=== PATIENT | male | born 1990 | race Two or more races ===

== ENCOUNTER 2024-08-28 10:53 | Emergency (ER) | payer MEDICAID, OTHER ==
[~2024-08-28] VITALS: Ht 170.2 cm; Wt 56.8 kg
[2024-08-28 11:00] VITALS: TEMP 97.8
--- NOTE | 2024-08-28 11:05 | ED.PDOC ---
History of Present Illness HPI Comments 33-year-old male brought by paramedics from surgery center because he has been having continuous nausea vomiting since this morning. He did have marijuana last night. He was supposed to have endoscopy this morning but he did not get the procedure because of his continuous vomiting. He does have a history of H pylori arrival for which she was diagnosed seven years ago but was under control. His providers does think his vomiting is due to using marijuana but wanted to confirm with endoscope whether he had H pylori right. History of gallbladder surgery. Denies any other symptoms. Time Seen by MD: 10:59 Reviewed Notes: Nurses Notes, Medications, Allergies Information Source: Patient, Emergency Med Personnel Mode of Arrival: EMS Severity: Moderate Timing: Hours Duration: Since onset Past Medical History PAST MEDICAL HISTORY: Denies Surgical History: Denies all surgeries Social History Smoker: Non-Smoker Alcohol: Denies ETOH Use Drugs: Marijuana Constitutional: denies: chills, diaphoresis, fatigue, fever, malaise, sweats, weakness, others EENTM: denies: blurred vision, double vision, ear bleeding, ear discharge, ear drainage, ear pain, ear ringing, eye pain, eye redness, hearing loss, mouth pain, mouth swelling, nasal discharge, nose bleeding, nose congestion, nose pain, photophobia, tearing, throat pain, throat swelling, voice changes, others Respiratory: denies: cough, hemoptysis, orthopnea, SOB at rest, shortness of breath, SOB with excertion, stridor, wheezing, others Cardiovascular: denies: chest pain, dizzy spells, diaphoresis, Dyspnea on exertion, edema, irregular heart beat, left arm pain, lightheadedness, palpitations, PND, syncope, others Gastrointestinal: reports: nausea, vomiting; denies: abdomen distended, abdominal pain, blood streaked bowels, constipated, diarrhea, dysphagia, difficulty swallowing, hematemesis, melena, poor appetite, poor fluid intake, rectal bleeding, rectal pain, others Genitourinary: denies: burning, dysuria, flank pain, frequency, hematuria, incontinence, penile discharge, penile sore, pain, testicle pain, testicle swelling, urgency, others Neurological: denies: dizziness, fainting, headache, left sided numbness, left sided weakness, numbness, paresthesia, pre-existing deficit, right sided numbness, right sided weakness, seizure, speech problems, tingling, tremors, weakness, others Musculoskeletal: denies: back pain, gout, joint pain, joint swelling, muscle pain, muscle stiffness, neck pain, others Integumetry: denies: bruises, change in color, change in hair/nails, dryness, laceration, lesions, lumps, rash, wounds, others Allergic/Immunocompromised: denies: Difficulty Healing, Frequent Infections, Hives, Itching, others Hematologic/Lymphatic: denies: anemia, blood clots, easy bleeding, easy bruising, swollen glands, others Endocrine: denies: excessive hunger, excessive sweating, excessive thirst, excessive urination, flushing, intolerance to cold, intolerance to heat, unexplained weight gain, unexplained weight loss, others Psychiatric: denies: anxiety, bipolar disorder, depression, hopeless, panic disorder, schizophrenia, sleepless, suicidal, others Physical Exam General Appearance: Moderate Distress HEENT: Normal ENT Inspection, Pharynx Normal, TMs Normal Neck: Full Range of Motion, Non-Tender, Normal, Normal Inspection Respiratory: Chest Non-Tender, Lungs Clear, No Accessory Muscle Use, No Respiratory Distress, Normal Breath Sounds Cardiovascular: No Edema, No JVD, No Murmur, No Gallop, Normal Peripheral Pulses, Regular Rate/Rhythm Breast Exam: Deferred Gastrointestinal: No Organomegaly, Non Tender, No Pulsatile Mass, Normal Bowel Sounds, Soft Genitalia: Deferred Pelvic: Deferred Rectal: Deferred Extremities: No calf tenderness, Normal capillary refill, Normal inspection, Normal range of motion, Non-tender, No pedal edema Musculoskeletal : Apperance: Normal Neurologic: Alert, instruction dean II-XII nml as Tested, No Motor Deficits, Normal Affect, Normal Mood, No Sensory Deficits Cerebellar Function: NOT DONE Reflexes: NOT DONE Skin: Dry, Normal Color, Warm Peripheral Pulses: 3+ Radial (R), 3+ Radial (L) Lymphatic: No Adenopathy Was a procedure done? Was a procedure done?: No Differential Dx Considerations may include: Marijuana induced vomiting Electrolyte imbalance X-Ray, Labs, Meds, VS Vital Signs Date Time Temp Pulse Resp B/P (MAP) Pulse Ox O2 Delivery O2 Flow Rate FiO2 08/28/24 13:21 69 16 145/81 (102) 98 08/28/24 13:20 69 16 145/81 08/28/24 11:39 82 20 157/83 08/28/24 11:35 Room Air* 0 21 08/28/24 11:35 68 20 157/83 (107) 98 Lab Test 08/28/24 11:18 Range/Units White Blood Count 10.4 4.4-10.8 10^3/uL Red Blood Count 5.41 4.5-5.90 10^6/uL Hemoglobin 16.9 13.5-17.5 g/dL Hematocrit 48.1 41.0-53.0 % Mean Corpuscular Volume 89.0 80.0-100.0 fL Mean Corpuscular Hemoglobin 31.2 28.0-32.0 pg Mean Corpuscular Hemoglobin Concent 35.0 32.0-36.0 g/dL Red Cell Distribution Width 13.6 11.8-14.3 % Platelet Count 130 L 140-450 10^3/uL Mean Platelet Volume 8.8 6.9-10.8 fL Neutrophils (%) (Auto) 37.0-80.0 % Lymphocytes (%) (Auto) 10.0-50.0 % Monocytes (%) (Auto) 0.0-12.0 % Basophils (%) (Auto) 0.0-2.0 % Neutrophils # (Auto) 1.6-8.6 10 ^3/uL Lymphocytes # (Auto) 0.4-5.4 10 ^3/uL Monocytes # (Auto) 0-1.3 10 ^3/uL Differential Total Cells Counted 99.0 100 Neutrophils % (Manual) 95 H 37.0-80.0 Band Neutrophils % (Manual) 1 Lymphocytes % (Manual) 3 L 10.0-50.0 Monocytes % (Manual) 0 0-12 Eosinophils % (Manual) 0 0-7 Basophils % (Manual) 0 0.0-2.0 Metamyelocytes % (manual) 0 Myelocytes % (Manual) 0 Promyelocytes % (Manual) 0 Blast Cells % (Manual) 0 Reactive Lymphocytes 0 Platelet Estimate Decreased Sodium Level 142 136-145 mmol/L Potassium Level 4.0 3.5-5.1 mmol/L Chloride Level 107 98-107 mmol/L Carbon Dioxide Level 24 20-31 mmol/L Anion Gap 11 5-15 Blood Urea Nitrogen 16 9-23 mg/dL Creatinine 0.93 0.700-1.30 mg/dL Glomerular Filtration Rate Calc 112 >90 mL/min BUN/Creatinine Ratio 17.2 10.0-20.0 Serum Glucose 146 H 74-106 mg/dL Calcium Level 10.1 8.7-10.4 mg/dL Current Medications Medications (Trade) Dose Ordered Sig/Jaky Route Start Time Stop Time Status Last Admin Ondansetron HCl (Zofran) 4 mg ONCE ONCE IV 08/28/24 11:00 08/28/24 11:01 DC 08/28/24 11:39 Morphine Sulfate 4 mg ONCE ONCE IV 08/28/24 11:00 08/28/24 11:01 DC 08/28/24 11:39 Sodium Chloride 1,000 ml @ 1,000 mls/hr Q1H ONCE IV 08/28/24 11:00 08/28/24 11:59 DC 08/28/24 11:46 Sodium Chloride 1,000 ml @ 150 mls/hr Q6H40M ONCE IV 08/28/24 11:00 08/28/24 17:39 08/28/24 11:46 Patient alert. Complaining of vomiting. Did have marijuana last night. Vitals stable. Establish intravenous access. Was given fluids. Was given Zofran. Was given morphine. Counseled patient on effects of marijuana. He was supposed to have endoscopic today. GI consultation. History of H pylori. Continue monitoring. Was feeling much better after getting fluids. Insists on leaving. Was told to follow up with his primary care physician. Was told to come back if there is any problem. Time of 1ST Reevaluation: 11:03 Reevaluation 1ST: Unchanged Time of 2ND Reevaluation: 13:29 Reevaluation 2ND: Improved Patient Education/Counseling: Diagnosis, Treatment, Prognosis, Need For Follow Up Family Education/Counseling: No Family Present SEPSIS Sepsis Screen Physician Orders Drug Screen (08/28/24 10:59) Sodium Chloride 0.9% (08/28/24 11:00) Vital Signs Date Time Temp Pulse Resp B/P (MAP) Pulse Ox O2 Delivery O2 Flow Rate FiO2 08/28/24 13:21 69 16 145/81 (102) 98 08/28/24 13:20 69 16 145/81 08/28/24 11:39 82 20 157/83 08/28/24 11:35 Room Air* 0 21 08/28/24 11:35 68 20 157/83 (107) 98 Laboratory Tests Test 08/28/24 11:18 White Blood Count 10.4 10^3/uL (4.4-10.8) Medications Medications Dose Ordered Sig/Jaky Route Start Time Stop Time Status Last Admin Dose Admin Morphine Sulfate 4 mg ONCE ONCE IV 08/28/24 11:00 08/28/24 11:01 DC 08/28/24 11:39 Ondansetron HCl 4 mg ONCE ONCE IV 08/28/24 11:00 08/28/24 11:01 DC 08/28/24 11:39 Sodium Chloride 1,000 ml @ 150 mls/hr Q6H40M ONCE IV 08/28/24 11:00 08/28/24 17:39 08/28/24 11:46 Sodium Chloride 1,000 ml @ 1,000 mls/hr Q1H ONCE IV 08/28/24 11:00 08/28/24 11:59 DC 08/28/24 11:46 Departure 1 Departure Time of Disposition: 11:04 Impression: Primary Impression: Cannabis-induced disorder Additional Impression: Cyclical vomiting Disposition: 01 HOME / SELF CARE / HOMELESS Condition: Good Discharged With: Self Critical Care Note Critical Care Time?: Yes (45 min-critical care time only) Critical care comment: Continues to have vomiting was given fluids nausea medication Stability Stability form required: No Heart Score Heart Score: Heart Score Response (Comments) Value History N/A 0 EKG N/A 0 Age N/A 0 Risk Factors N/A 0 Troponin N/A 0 Total 0 JOAN BOLANOS MD Aug 28, 2024 11:05
[2024-08-28 11:29] LABS: Hematocrit 48.1 % (41.0-53.0); Hemoglobin 16.9 g/dL (13.5-17.5); Mean Corpuscular Hemoglobin 31.2 pg (28.0-32.0); Platelet Count (auto) 130 10^3/uL (140-450); Red Blood Cells 5.41 10^6/uL (4.5-5.90); Red Cell Distribution Width 13.6 % (11.8-14.3); White Blood Cell 10.4 10^3/uL (4.4-10.8)
[2024-08-28 11:35] LABS: Basophils % (manual) 0 (0.0-2.0); Blast Cells 0; Eosinophils % (manual) 0 (0-7); Metamyelocytes % 0; Monocytes % (manual) 0 (0-12); Myelocytes % 0; Promyelocytes % 0; Reactive Lymphocytes 0
[2024-08-28] MEDS: ONDANSETRON HCL 4 MG/2 ML VIAL IV ONE (11:39)
[2024-08-28] MEDS: MORPHINE SULFATE 4 MG/ML SYR/VIAL IV ONE (11:39)
[2024-08-28 11:45] LABS: Chloride 107 mmol/L (98-107); Sodium 142 mmol/L (136-145)
[2024-08-28 11:46] LABS: Anion Gap 11 (5-15); Carbon Dioxide 24 mmol/L (20-31)
[2024-08-28] MEDS: SODIUM CHLORIDE 0.9% 1,000 ML IV ONE ×2 (11:46)
[2024-08-28 11:47] LABS: Calcium 10.1 mg/dL (8.7-10.4)
[2024-08-28 11:51] LABS: BUN/Creatinine Ratio 17.2 (10.0-20.0); Blood Urea Nitrogen 16 mg/dL (9-23)
[2024-08-28 11:52] LABS: Glucose 146 mg/dL (74-106)
[2024-08-28 12:44] LABS: Band Neutrophils % (manual) 1; Lymphocytes % (manual) 3 (10.0-50.0); Platelet Estimate Decreased
[2024-08-28 13:21] VITALS: BP 145/81; PULSE 69; RESP 16; O2SAT 98
[2024-08-29] MEDS ORDERED: PANT40T PO (12:16)
== END 2024-08-28 13:21 | disposition home or self-care (01) ==
LOC: ER 10:53 → EDBD 10:53 → ER 13:21
DX: F12.19 Cannabis abuse with unspecified cannabis-induced disorder (principal); R11.15 Cyclical vomiting syndrome unrelated to migraine
CPT/HCPCS: 36415; 80048; 85007; 85027; 96361; 96374; 96375; 99284; J2270; J2405; J7030

== ENCOUNTER 2024-08-29 08:47 | Inpatient (IN) | payer MEDICAID ==
[~2024-08-29] VITALS: Ht 170.2 cm; Wt 58.0 kg
[2024-08-29] MEDS: SODIUM CHLORIDE 0.9% 1,000 ML IV ONE (09:29)
[2024-08-29] MEDS: ONDANSETRON HCL 4 MG/2 ML VIAL IV ONE (09:37)
[2024-08-29] MEDS: SODIUM CHLORIDE 0.9% 1,000 ML IVB ONE (09:38)
[2024-08-29 09:41] VITALS: PULSE 79; RESP 18; O2SAT 96
--- NOTE | 2024-08-29 09:42 | ED.PDOC ---
History of Present Illness HPI Comments 33-year-old male came here because he was having abdominal pain nausea vomiting 430 this morning. Patient was seen yesterday for continuous nausea vomiting for which she was supposed to have endoscope. Patient was seen at his assistant to the ceo prior to coming to the ER by ambulance because of continuous nausea vomiting. He does have a history of H pylori which was diagnosed seven years ago. 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 Creative Engagement Director has referred the patient to the ER for endoscope. Denies any other symptoms. Chief Complaint: Abdominal Pain Time Seen by MD: 09:18 Reviewed Notes: Nurses Notes, Medications, Allergies Allergies: Coded Allergies: NO KNOWN ALLERGIES (Unverified , 08/28/24) Information Source: Patient Mode of Arrival: Ambulatory Severity: Moderate Timing: Days Duration: Since onset Past Medical History PAST MEDICAL HISTORY: Denies Surgical History: Denies all surgeries Social History Smoker: Non-Smoker Alcohol: Denies ETOH Use Drugs: Marijuana Constitutional: denies: chills, diaphoresis, fatigue, fever, malaise, sweats, weakness, others EENTM: denies: blurred vision, double vision, ear bleeding, ear discharge, ear drainage, ear pain, ear ringing, eye pain, eye redness, hearing loss, mouth pain, mouth swelling, nasal discharge, nose bleeding, nose congestion, nose pain, photophobia, tearing, throat pain, throat swelling, voice changes, others Respiratory: denies: cough, hemoptysis, orthopnea, SOB at rest, shortness of breath, SOB with excertion, stridor, wheezing, others Cardiovascular: denies: chest pain, dizzy spells, diaphoresis, Dyspnea on exertion, edema, irregular heart beat, left arm pain, lightheadedness, palpitations, PND, syncope, others Gastrointestinal: reports: nausea, vomiting; denies: abdomen distended, abdominal pain, blood streaked bowels, constipated, diarrhea, dysphagia, difficulty swallowing, hematemesis, melena, poor appetite, poor fluid intake, rectal bleeding, rectal pain, others Genitourinary: denies: burning, dysuria, flank pain, frequency, hematuria, incontinence, penile discharge, penile sore, pain, testicle pain, testicle swelling, urgency, others Neurological: denies: dizziness, fainting, headache, left sided numbness, left sided weakness, numbness, paresthesia, pre-existing deficit, right sided numbness, right sided weakness, seizure, speech problems, tingling, tremors, weakness, others Musculoskeletal: denies: back pain, gout, joint pain, joint swelling, muscle pain, muscle stiffness, neck pain, others Integumetry: denies: bruises, change in color, change in hair/nails, dryness, laceration, lesions, lumps, rash, wounds, others Allergic/Immunocompromised: denies: Difficulty Healing, Frequent Infections, Hives, Itching, others Hematologic/Lymphatic: denies: anemia, blood clots, easy bleeding, easy bruisi ng, swollen glands, others Endocrine: denies: excessive hunger, excessive sweating, excessive thirst, exce ssive urination, flushing, intolerance to cold, intolerance to heat, unexplained weight gain, unexplained weight loss, others Psychiatric: denies: anxiety, bipolar disorder, depression, hopeless, panic disorder, schizophrenia, sleepless, suicidal, others Physical Exam General Appearance: Moderate Distress HEENT: Normal ENT Inspection, Pharynx Normal, TMs Normal Neck: Full Range of Motion, Non-Tender, Normal, Normal Inspection Respiratory: Chest Non-Tender, Lungs Clear, No Accessory Muscle Use, No Respiratory Distress, Normal Breath Sounds Cardiovascular: No Edema, No JVD, No Murmur, No Gallop, Normal Peripheral Pulse s, Regular Rate/Rhythm Breast Exam: Deferred Gastrointestinal: No Organomegaly, Non Tender, No Pulsatile Mass, Normal Bowel Sounds, Soft Genitalia: Deferred Pelvic: Deferred Rectal: Deferred Extremities: No calf tenderness, Normal capillary refill, Normal inspection, Normal range of motion, Non-tender, No pedal edema Musculoskeletal : Apperance: Normal Neurologic: Alert, cath lab technologist II-XII nml as Tested, No Motor Deficits, Normal Affect, Normal Mood, No Sensory Deficits Cerebellar Function: Normal Reflexes: Normal Skin: Dry, Normal Color, Warm Peripheral Pulses: 3+ Radial (R), 3+ Radial (L) Lymphatic: No Adenopathy Was a procedure done? Was a procedure done?: No Differential Dx Considerations may include: Gastroenteritis Gastritis X-Ray, Labs, Meds, VS Vital Signs Date Time Temp Pulse Resp B/P (MAP) Pulse Ox O2 Delivery O2 Flow Rate FiO2 08/29/24 09:11 98.3 81 18 120/65 (83) 98 98.3 Patient alert. Came in because of abdominal pain nausea vomiting. Vitals stable. Answering questions. He is pain-free at the present moment. Last pain episode with vomiting was 4:30 this morning. Reviewed his previous visit. Explained to the family. Continue monitoring. Gastroenterology consultation. Time of 1ST Reevaluation: 09:41 Reevaluation 1ST: Unchanged Patient Education/Counseling: Diagnosis, Treatment, Prognosis Family Education/Counseling: No Family Present SEPSIS Sepsis Screen Date sepsis recognized/suspect: Aug 29, 2024 Time Sepsis recognized/suspect: 912 Recent Procedure: No On Antibiotic Therapy: No Respiratory Rate >20: No Heart Rate >90: No Temp<36 C (96.8 F) or >38.3 C: No SBP <90 or MAP <65 mmHG: No New Acute Mental Status Change: No Is the patient on CPAP, BIPAP,: No Physician Orders Sodium Chloride 0.9% (08/29/24 09:30) Basic Metabolic Panel (08/29/24 09:18) Sodium Chloride 0.9% (08/29/24 09:30) Vital Signs Date Time Temp Pulse Resp B/P (MAP) Pulse Ox O2 Delivery O2 Flow Rate FiO2 08/29/24 09:11 98.3 81 18 120/65 (83) 98 98.3 Departure 1 Departure Time of Disposition: 09:42 Impression: Primary Impression: Cannabis-induced disorder Additional Impressions: Gastritis Qualified Codes: K29.00 - Acute gastritis without bleeding Cyclical vomiting Disposition: ADMITTED INPATIENT Admit to: Med Surg Condition: Guarded Critical Care Note Critical Care Time?: No Stability Stability form required: No Heart Score Heart Score: Heart Score Response (Comments) Value History N/A 0 EKG N/A 0 Age N/A 0 Risk Factors N/A 0 Troponin N/A 0 Total 0 JOAN BOLANOS MD Aug 29, 2024 09:42
[2024-08-29 09:54] LABS: Chloride 105 mmol/L (98-107); Potassium 4.3 mmol/L (3.5-5.1); Sodium 141 mmol/L (136-145)
[2024-08-29 09:55] LABS: Anion Gap 8 (5-15); Calcium 10.2 mg/dL (8.7-10.4); Carbon Dioxide 28 mmol/L (20-31)
[2024-08-29 10:00] LABS: BUN/Creatinine Ratio 15.1 (10.0-20.0); Blood Urea Nitrogen 14 mg/dL (9-23); Glucose 105 mg/dL (74-106)
[2024-08-29] MEDS ORDERED: ACETAMINOPHEN 325 MG TAB PO PRN (12:15)
[2024-08-29] MEDS ORDERED: ONDANSETRON HCL 4 MG/2 ML VIAL IV PRN (12:15)
[2024-08-29] MEDS ORDERED: DOCUSATE SOD 100 MG CAP PO PRN (12:15)
[2024-08-29] MEDS: SODIUM CHLORIDE 0.9% 1,000 ML IV SCH (12:15)
[2024-08-29] MEDS ORDERED: PANT40T PO (12:16)
--- NOTE | 2024-08-29 12:29 | DVHHP2 ---
History of Present Illness Reason for Visit: Abdominal pain History of Present Illness Fish Ahuja is a 33-year-old male with past medical history of H pylori, and gastritis, who was sent to the hospital by his GI doctor for cyclical vomiting and EGD. Patient was scheduled for an EGD yesterday. He came as an outpatient for the procedure, but doctor Dain was unable to complete the procedure due to the patient having \cyclical vomiting. She then sent him to the hospital to be evaluated, treated, and admitted. The patient came yesterday, was sent home. Then called to come back to the hospital. GI: Gastritis Past Surgical History: Cholecystectomy Smoke: No ALCOHOL: rare Drugs: Marijuana Lives: with Family Domestic Violence: Neg Review of Systems Constitutional: No: Fever, Chills, Sweats, Weakness, Malaise, Other Eyes: No: Pain, Vision change, Conjunctivae inflammation, Eyelid inflammation, Other, Redness ENT: No: Ear pain, Ear discharge, Nose pain, Nose discharge, Nose congestion, Mouth pain, Mouth swelling, Throat pain, Throat swelling, Other Respiratory: No: Cough, Dry, Shortness of breath, SOB with excertion, Wheezing, Hemoptysis, Pleuritic Pain, Sputum, Wheezing, Other Cardiovascular: No: Chest Pain, Palpitations, Orthopnea, Paroxysmal Noc. Dyspnea, Edema, Lt Headedness, Other Gastrointestinal: Nausea, Vomiting, Abdominal Pain; No: Diarrhea, Constipation, Melena, Hematochezia, Other Genitourinary: No Dysuria, No Frequency, No Incontinence, No Hematuria, No Retention, No Other Musculoskeletal: No: other, neck pain, shoulder pain, arm pain, back pain, hand pain, leg pain, foot pain Skin: No: Rash, Lesions, Jaundice, Bruising, Other Neurological: No: Weakness, Numbness, Incoordination, Change in speech, Confusion, Seizures, Other Allergies: Coded Allergies: NO KNOWN ALLERGIES (Unverified , 08/28/24) Exam Vital Signs Vital Signs Date Time Temp Pulse Resp B/P (MAP) Pulse Ox O2 Delivery O2 Flow Rate FiO2 08/29/24 10:50 51 16 105/6 (39) 99 08/29/24 09:41 97.8 97.8 08/29/24 09:41 Room Air* 0 21 General Appearance: Alert, Oriented X3, Cooperative, mild distress HEENT: Atraumatic, PERRLA Respiratory: Clear to auscultation, Normal air movement Cardiovascular: Regular rate, Normal S1, Normal S2 Abdominal: Normal bowel sounds, Soft, No hepatospenomegaly, Other (abdomial pain, nausea and vomiting) Extremities: No clubbing, No cyanosis, No edema, Normal pulses, No tenderness/swelling Skin: No rashes, No breakdown, No significant lesion Neuro: Normal gait, Normal speech, Strength at 5/5 X4 ext Psych/Mental Status: Mental status NL, Mood NL Labs/Xrays Labs Test 08/29/24 09:36 Range/Units Sodium Level 141 136-145 mmol/L Potassium Level 4.3 3.5-5.1 mmol/L Chloride Level 105 98-107 mmol/L Carbon Dioxide Level 28 20-31 mmol/L Anion Gap 8 5-15 Blood Urea Nitrogen 14 9-23 mg/dL Creatinine 0.93 0.700-1.30 mg/dL Glomerular Filtration Rate Calc 112 >90 mL/min BUN/Creatinine Ratio 15.1 10.0-20.0 Serum Glucose 105 74-106 mg/dL Calcium Level 10.2 8.7-10.4 mg/dL Assessment/Plan Assessment/Plan Assessment: Cyclical vomiting, Gastritis, H/O H pylori, Plan: Admit to Med-Surg, GI consult, IV hydration, Antiemetics, Pain management, Home mediations reconciled, Plan discussed with: Patient My Orders Orders - TARYN PERALTA Procedure Category Date Status Time * Gi Dvh Auto Damage Adjuster CONS 08/29/24 Transmitted 10:24 Admit ADMIT 08/29/24 Verified 12:14 Code Status CODE 08/29/24 Verified 12:14 0.9% Ns 1000 Ml PHA 08/29/24 Verified 12:15 Hydrocodone-Acet PHA 08/29/24 Verified 5/325mg Tab ([place] 12:15 Ondansetron Hcl PHA 08/29/24 Verified (Zofran) 12:15 Docusate Sodium PHA 08/29/24 Verified Capsule ([place] 12:15 Complete Blood Count LAB 08/30/24 Verified 04:00 Comprehensive LAB 08/30/24 Verified Metabolic Panel 04:00 Npo (Nothing By DIET 08/29/24 Verified Mouth) Diet Lunch Condition: Serious MERCEDES 08/29/24 Verified 12:14 Acetaminophen Tablet PHA 08/29/24 Verified (Tylenol Tablet) 12:15 Date of Service: Aug 29, 2024 Billing Provider: TARYN PERALTA Common Visit Codes: [id number] INP/OBS CARE (MOD) TARYN PERALTA Aug 29, 2024 12:29
[2024-08-29 13:15] LABS: Urine Bacteria None Seen /hpf (None Seen)
[2024-08-29 13:21] LABS: Urine Blood Negative /uL (Negative); Urine Clarity Clear (Clear); Urine Color Light-Yellow (Yellow); Urine Protein, UAD Negative (Negative); Urine Specific Gravity 1.018 (1.001-1.035); Urine Squamous Epithelial Cell None Seen /hpf (<5); Urine Urobilinogen Normal (Negative); Urine WBC 1 /HPF (0-3)
[2024-08-29 21:40] VITALS: BP 116/64; PULSE 54; RESP 18; TEMP 98.3; O2SAT 99
[2024-08-30] MEDS: HYDROcodone-ACET 5/325MG TAB PO PRN (04:16)
[2024-08-30] MEDS: KETOROLAC TROMETH 30 MG/ML 1ML VIAL IV ONE (04:59)
[2024-08-30 05:00] VITALS: BP 121/79; PULSE 55; RESP 18; TEMP 98.5; O2SAT 97
[2024-08-30 09:00] VITALS: BP 145/87; PULSE 77; RESP 20; TEMP 97.1; O2SAT 99
[2024-08-30 12:05] LABS: Basophils # (auto) 0.1 10 ^3/uL (0-0.2); Basophils % (auto) 0.9 % (0.0-2.0); Eosinophils # (auto) 0 10 ^3/uL (0-0.8); Eosinophils % (auto) 0.5 % (0.0-7.0); Hemoglobin 16.1 g/dL (13.5-17.5); Lymphocytes % (auto) 13.6 % (10.0-50.0); Mean Corpuscular Hemoglobin 31.1 pg (28.0-32.0); Mean Corpuscular Hgb Conc. 34.9 g/dL (32.0-36.0); Mean Corpuscular Volume 88.9 fL (80.0-100.0); Monocytes # (auto) 0.6 10 ^3/uL (0-1.3); Neutrophils # (auto) 5.9 10 ^3/uL (1.6-8.6); Platelet Count (auto) 116 10^3/uL (140-450); Red Blood Cells 5.17 10^6/uL (4.5-5.90); Red Cell Distribution Width 13.4 % (11.8-14.3); White Blood Cell 7.7 10^3/uL (4.4-10.8)
[2024-08-30 12:23] LABS: Alanine Aminotransferase 26 U/L (7-40); Albumin 4.5 g/dL (3.2-4.8); Alkaline Phosphatase 58 U/L (46-116); Anion Gap 7 (5-15); Aspartate Aminotransferase 27 U/L (<34); Bilirubin, Total 1.1 mg/dL (0.2-1.0); Blood Urea Nitrogen 13 mg/dL (9-23); Calcium 9.8 mg/dL (8.7-10.4); Carbon Dioxide 28 mmol/L (20-31); Chloride 107 mmol/L (98-107); Glucose 102 mg/dL (74-106); Potassium 3.8 mmol/L (3.5-5.1); Sodium 142 mmol/L (136-145); Total Protein 6.3 g/dL (5.7-8.2)
[2024-08-30 13:00] VITALS: BP 122/71; PULSE 57; RESP 20; TEMP 97; O2SAT 98
--- NOTE | 2024-08-30 13:32 | DVHPN2 ---
Reviewed: Care Plan, H&P, Labs, Medications, Previous Orders, Radiology Changes from previous H/P or p: No Changes Eyes: No Pain, No Vision change, No Conjunctivae inflammation, No Eyelid inflammation, No Other, No Redness ENT: No Ear pain, No Ear discharge, No Nose pain, No Nose discharge, No Nose congestion, No Mouth pain, No Mouth swelling, No Throat pain, No Throat swelling, No Other Cardiovascular: No Chest Pain, No Palpitations, No Orthopnea, No Paroxysmal Noc. Dyspnea, No Edema, No Lt Headedness, No Other Respiratory: No Cough, No Dry, No Shortness of breath, No SOB with excertion, No Wheezing, No Hemoptysis, No Pleuritic Pain, No Sputum, No Other Gastrointestinal: Nausea, Vomiting, Abdominal Pain; No Diarrhea, No Constipation, No Melena, No Hematochezia, No Other Genitourinary: No Dysuria, No Frequency, No Incontinence, No Hematuria, No Retention, No Other Musculoskeletal: No other, No neck pain, No shoulder pain, No arm pain, No back pain, No hand pain, No leg pain, No foot pain Skin: No Rash, No Lesions, No Jaundice, No Bruising, No Other Objective Vitals Vital Signs Date Time Temp Pulse Resp B/P (MAP) Pulse Ox O2 Delivery O2 Flow Rate FiO2 08/30/24 13:00 97.0 57 20 122/71 (88) 98 97.0 08/30/24 08:13 Room Air* 0 21 Intake/Output Intake and Output 08/30/24 07:00 Intake Total 230 ml Output Total 400 ml Balance -170 ml Intake Oral 230 ml Output Urine Total 400 ml # Voids 3 Medications Current Medications Medications Dose Ordered Sig/Jaky Route Start Time Stop Time Status Last Admin Dose Admin Sodium Chloride 1,000 ml @ 100 mls/hr Q10H IV 08/29/24 12:15 08/30/24 08:19 100 MLS/HR Acetaminophen/ Hydrocodone Bitart 1 tab Q4HP PRN PO 08/29/24 12:15 08/30/24 04:16 1 TAB Ondansetron HCl 4 mg Q4HP PRN IV 08/29/24 12:15 Docusate Sodium 100 mg BIDPRN PRN PO 08/29/24 12:15 Acetaminophen 650 mg Q6HP PRN PO 08/29/24 12:15 Laboratory Results Laboratory Tests 08/30/24 11:48 Chemistry Test 08/30/24 11:48 Albumin 4.5 g/dL (3.2-4.8) Calcium Level 9.8 mg/dL (8.7-10.4) Total Protein 6.3 g/dL (5.7-8.2) LFT Test 08/30/24 11:48 Alanine Aminotransferase (ALT) 26 U/L (7-40) Alkaline Phosphatase 58 U/L (46-116) Aspartate Amino Transferase (AST) 27 U/L (<34) Total Bilirubin 1.1 mg/dL (0.2-1.0) H Urinalysis Test 08/29/24 10:30 Urine Color Light-yellow (Yellow) Urine Clarity Clear (Clear) Urine pH 7.0 (5.0-9.0) Urine Specific [place] 1.018 (1.001-1.035) Urine Protein Negative (Negative) Urine Ketones Negative (Negative) Urine Blood Negative /uL (Negative) Urine Nitrite Negative (Negative) Urine Bilirubin Negative (Negative) Urine Urobilinogen Normal mg/dL (Negative) Urine Leukocyte Esterase Negative /uL (Negative) Urine RBC <1 /hpf (0 - 3) Urine Microscopic WBC 1 /HPF (0-3) Urine Squamous Epithelial Cells None seen /hpf (<5) Urine Bacteria None seen /hpf (None Seen) Urine Glucose Normal mg/dL (Normal) Labs and/or images reviewed: Labs reviewed by me, Image(s) reviewed by me Assessment/Plan Assessment/Plan Cyclical vomiting, CT abdomen pelvis without contrast pending, pantoprazole, GI consult by Dr. Karen Gautam for possible EGD, Gastritis, H/O H pylori History of marijuana abuse: Will check urine drug screen Plan discussed with: Patient My Orders Orders - FAITH RODRÍGUEZ MD Procedure Category Date Status Time Drug Screen LAB 08/30/24 Logged 13:23 Ct Ab Pel Wo Con-No CT 08/30/24 Logged Oral Or Iv 13:23 Date of Service: Aug 30, 2024 Billing Provider: FAITH RODRÍGUEZ MD Common Visit Codes: [id number] INP/OBS CARE(HIGH) FAITH RODRÍGUEZ MD Aug 30, 2024 13:32
--- NOTE | 2024-08-30 14:03 | DVHINCON2 ---
GI Consult Consult Note GI consult note Date of Consultation: 08/30/2024 Chief Complaint: Nausea and vomiting Referring Physician: Мария SALDIVAR H&P: 33-year-old male with past medical history of H. pylori gastritis was sent to the hospital by Dr. Gautam for cyclic nausea and vomiting. Patient was scheduled for an EGD, and symptoms of nausea and vomiting or worsening and was sent to the hospital. Patient complains of epigastric and periumbilical abdominal pain, worse in the morning, and patient is requesting for pain medications. Admits to long-term marijuana use because this helps with his pain symptoms. No hematemesis. Denies melena or red blood in stool. Past Medical History: Gastritis Past Surgical History: Cholecystectomy Social History: NO smoking, occasional drinking ETOH Positive marijuana use Family History: Noncontributory Review of Systems: Constitutional: no fever, chill, weight loss HEENT: no eye pain, no hearing loss, no oral lesion, no scleral icterus Heart: no chest pain, no chest pressure Lung: no cough, no dyspnea with exertion Abdomen: see HPI Physical exam: General: NAD, AAOX3 Chest: lung crump clear to auscultation Heart: RRR, no murmur Abdomen: non-distended, no tenderness to palpation, +BS Labs: Labs Test 08/30/24 11:48 08/29/24 10:30 Range/Units White Blood Count 7.7 # 4.4-10.8 10^3/uL Red Blood Count 5.17 4.5-5.90 10^6/uL Hemoglobin 16.1 13.5-17.5 g/dL Hematocrit 46.0 41.0-53.0 % Mean Corpuscular Volume 88.9 80.0-100.0 fL Mean Corpuscular Hemoglobin 31.1 28.0-32.0 pg Mean Corpuscular Hemoglobin Concent 34.9 32.0-36.0 g/dL Red Cell Distribution Width 13.4 11.8-14.3 % Platelet Count 116 L 140-450 10^3/uL Mean Platelet Volume 8.9 6.9-10.8 fL Neutrophils (%) (Auto) 77.0 37.0-80.0 % Lymphocytes (%) (Auto) 13.6 10.0-50.0 % Monocytes (%) (Auto) 8.0 0.0-12.0 % Eosinophils (%) (Auto) 0.5 0.0-7.0 % Basophils (%) (Auto) 0.9 0.0-2.0 % Neutrophils # (Auto) 5.9 1.6-8.6 10 ^3/uL Lymphocytes # (Auto) 1.0 0.4-5.4 10 ^3/uL Monocytes # (Auto) 0.6 0-1.3 10 ^3/uL Eosinophils # (Auto) 0 0-0.8 10 ^3/uL Basophils # (Auto) 0.1 0-0.2 10 ^3/uL Nucleated Red Blood Cells 0.0 % Sodium Level 142 136-145 mmol/L Potassium Level 3.8 3.5-5.1 mmol/L Chloride Level 107 98-107 mmol/L Carbon Dioxide Level 28 20-31 mmol/L Anion Gap 7 5-15 Blood Urea Nitrogen 13 9-23 mg/dL Creatinine 0.93 0.700-1.30 mg/dL Glomerular Filtration Rate Calc 112 >90 mL/min BUN/Creatinine Ratio 14.0 10.0-20.0 Serum Glucose 102 74-106 mg/dL Calcium Level 9.8 8.7-10.4 mg/dL Total Bilirubin 1.1 H 0.2-1.0 mg/dL Aspartate Amino Transferase (AST) 27 <34 U/L Alanine Aminotransferase (ALT) 26 7-40 U/L Alkaline Phosphatase 58 46-116 U/L Total Protein 6.3 5.7-8.2 g/dL Albumin 4.5 3.2-4.8 g/dL Urine Color Light-yellow Yellow Urine Clarity Clear Clear Urine pH 7.0 5.0-9.0 Urine Specific [place] 1.018 1.001-1.035 Urine Protein Negative Negative Urine Ketones Negative Negative Urine Blood Negative Negative /uL Urine Nitrite Negative Negative Urine Bilirubin Negative Negative Urine Urobilinogen Normal Negative mg/dL Urine Leukocyte Esterase Negative Negative /uL Urine RBC <1 0 - 3 /hpf Urine Microscopic WBC 1 0-3 /HPF Urine Squamous Epithelial Cells None seen <5 /hpf Urine Bacteria None seen None Seen /hpf Urine Glucose Normal Normal mg/dL Imaging: CT abdomen pelvis Pending Assessment: Abdominal pain Nausea and vomiting Marijuana use History of H pylori Plan: Discussed with Dr. Gautam - Pt will be scheduled for an EGD tomorrow 08/31/2024. Pt was informed of the risks (bleeding, infection, perforation, reaction to sedation medications and cardiopulmonary arrest) and benefit and is agreeable to undergo the procedures. DC marijuana discussed extensively Patient and at bedside requesting for long-term pain management evaluation and treatment Plan discussed with patient, and RN Thank you for this consult Date of Service: Aug 30, 2024 Billing Provider: JELLY RODRÍGUEZ Common Visit Codes: CONSULT ONLY Consultation Codes: [id number] CONSULT <60MIN JELLY RODRÍGUEZ Aug 30, 2024 14:03
--- NOTE | 2024-08-30 14:22 | DVH ---
Indication: Abdominal pain Technique: CT axial images of the abdomen and pelvis are obtained without contrast. Coronal and sagit lee reformats were obtained. Radiation Dose Information: CTDI volume is 5.07 mGy. Dose-length product is 290.12 mGy*cm Comparison: None FINDINGS: There is limited interpretation of the abdomen and pelvis without administration of intravenous contr ast. Lung bases demonstrate no pleural effusion. Adrenal glands, spleen, pancreas unremarkable in shape. Cholecystectomy. Liver unremarkable in shap e. Kidneys demonstrate no hydronephrosis, nephrolithiasis. Stomach is partially distended. Small bowel loops are normal in caliber. Large volume stool in the colon. No secondary signs for appendicitis. Bladder is partially distended. No free pelvic fluid. No inguinal lymphadenopathy. There is moderate thoracolumbar degenerative disc disease. 7 mm disc protrusion at L4-5 resulting in spinal canal stenosis IMPRESSION: Large volume stool within the colon. Cholecystectomy. No hydronephrosis/ nephrolithiasis. 7 mm disc protrusion at L4-5 resulting in spinal canal stenosis. Recommend MRI lumbar spine to evalu ate
[2024-08-30 14:28] LABS: INR 1.09 (0.9-1.15); Prothrombin Time 11.5 sec (9.3-11.8)
[2024-08-30] MEDS: PANTOPRAZOLE 40 MG/10 ML VIAL INJ IV ONE (16:56)
[2024-08-30 16:57] VITALS: BP 127/78; PULSE 63; RESP 20; TEMP 97.8; O2SAT 99
[2024-08-30 17:43] LABS: Amphetamine Screen, Urine Neg (NEGATIVE); Barbiturate Scree,Urine Neg (NEGATIVE); Benzodiazephine Screen, Urine Neg (NEGATIVE); Cannabinoid Screen, Urine Pos (NEGATIVE); Cocaine Screen, Urine Neg (NEGATIVE); Opiate Scree,Urine Neg (NEGATIVE); Phencyclidine Screen, Urine Neg (NEGATIVE)
[2024-08-30 21:00] VITALS: BP_SYST 102; BP_SYST 112; BP_DIAS 61; BP_DIAS 71; PULSE 70; RESP 18; TEMP 98.9; TEMP 99.8; O2SAT 97; O2SAT 99
[2024-08-31 01:00] VITALS: BP 110/67; PULSE 55; RESP 18; TEMP 98.5; O2SAT 99
[2024-08-31 04:59] VITALS: BP_SYST 111; BP_SYST 121; BP_DIAS 69; BP_DIAS 73; PULSE 66; RESP 18; TEMP 98.7; O2SAT 100; O2SAT 99
--- NOTE | 2024-08-31 08:44 | DVHPN2 ---
Reviewed: Care Plan, H&P, Labs, Medications, Previous Orders, Radiology Changes from previous H/P or p: No Changes Eyes: No Pain, No Vision change, No Conjunctivae inflammation, No Eyelid inflammation, No Other, No Redness ENT: No Ear pain, No Ear discharge, No Nose pain, No Nose discharge, No Nose congestion, No Mouth pain, No Mouth swelling, No Throat pain, No Throat swelling, No Other Cardiovascular: No Chest Pain, No Palpitations, No Orthopnea, No Paroxysmal Noc. Dyspnea, No Edema, No Lt Headedness, No Other Respiratory: No Cough, No Dry, No Shortness of breath, No SOB with excertion, No Wheezing, No Hemoptysis, No Pleuritic Pain, No Sputum, No Other Gastrointestinal: Nausea, Vomiting, Abdominal Pain; No Diarrhea, No Constipation, No Melena, No Hematochezia, No Other Genitourinary: No Dysuria, No Frequency, No Incontinence, No Hematuria, No Retention, No Other Musculoskeletal: No other, No neck pain, No shoulder pain, No arm pain, No back pain, No hand pain, No leg pain, No foot pain Skin: No Rash, No Lesions, No Jaundice, No Bruising, No Other Objective Vitals Vital Signs Date Time Temp Pulse Resp B/P (MAP) Pulse Ox O2 Delivery O2 Flow Rate FiO2 08/31/24 08:17 Room Air* 0 21 08/31/24 04:59 98.7 66 18 111/73 (86) 100 98.7 Intake/Output Intake and Output 08/31/24 07:00 Intake Total 1480 ml Balance 1480 ml Intake Oral 480 ml IV Total 1000 ml # Voids 7 Medications Current Medications Medications Dose Ordered Sig/Jaky Route Start Time Stop Time Status Last Admin Dose Admin Sodium Chloride 1,000 ml @ 100 mls/hr Q10H IV 08/29/24 12:15 08/31/24 02:32 100 MLS/HR Acetaminophen/ Hydrocodone Bitart 1 tab Q4HP PRN PO 08/29/24 12:15 08/30/24 04:16 1 TAB Ondansetron HCl 4 mg Q4HP PRN IV 08/29/24 12:15 Docusate Sodium 100 mg BIDPRN PRN PO 08/29/24 12:15 Acetaminophen 650 mg Q6HP PRN PO 08/29/24 12:15 Pantoprazole Sodium 40 mg DAILY IV 08/31/24 10:00 Laboratory Results Laboratory Tests 08/30/24 11:48 Chemistry Test 08/30/24 11:48 Albumin 4.5 g/dL (3.2-4.8) Calcium Level 9.8 mg/dL (8.7-10.4) Total Protein 6.3 g/dL (5.7-8.2) Coagulation Test 08/30/24 11:48 Prothrombin Time 11.5 sec (9.3-11.8) Prothrombin Time INR 1.09 (0.9-1.15) LFT Test 08/30/24 11:48 Alanine Aminotransferase (ALT) 26 U/L (7-40) Alkaline Phosphatase 58 U/L (46-116) Aspartate Amino Transferase (AST) 27 U/L (<34) Total Bilirubin 1.1 mg/dL (0.2-1.0) H Urinalysis Test 08/29/24 10:30 Urine Color Light-yellow (Yellow) Urine Clarity Clear (Clear) Urine pH 7.0 (5.0-9.0) Urine Specific [place] 1.018 (1.001-1.035) Urine Protein Negative (Negative) Urine Ketones Negative (Negative) Urine Blood Negative /uL (Negative) Urine Nitrite Negative (Negative) Urine Bilirubin Negative (Negative) Urine Urobilinogen Normal mg/dL (Negative) Urine Leukocyte Esterase Negative /uL (Negative) Urine RBC <1 /hpf (0 - 3) Urine Microscopic WBC 1 /HPF (0-3) Urine Squamous Epithelial Cells None seen /hpf (<5) Urine Bacteria None seen /hpf (None Seen) Urine Glucose Normal mg/dL (Normal) Labs and/or images reviewed: Labs reviewed by me, Image(s) reviewed by me Assessment/Plan Assessment/Plan Cyclical vomiting, CT abdomen pelvis without contrast pending, pantoprazole, GI Dr. Karen Gautam planning for EGD today Gastritis, H/O H pylori History of marijuana abuse: Will check urine drug screen Plan discussed with: Patient My Orders Orders - FAITH RODRÍGUEZ MD Procedure Category Date Status Time Ct Ab Pel Wo Con-No CT 08/30/24 Resulted Oral Or Iv 13:23 Pantoprazole PHA 08/31/24 In Process (Protonix) 10:00 Date of Service: Aug 31, 2024 Billing Provider: FAITH RODRÍGUEZ MD Common Visit Codes: [id number] INP/OBS CARE(HIGH) FAITH RODRÍGUEZ MD Aug 31, 2024 08:44
[2024-08-31 09:00] VITALS: BP 120/69; PULSE 71; RESP 18; TEMP 98.1; O2SAT 99
[2024-08-31] MEDS: PANTOPRAZOLE 40 MG/10 ML VIAL INJ IV SCH (09:32)
[2024-08-31] MEDS ORDERED: GLYCOPYRROLATE 0.2 MG/ML 1ML VIAL ONE (09:43)
[2024-08-31] MEDS ORDERED: fentaNYL CITRATE 100 MCG/2 ML VL ONE (09:43)
[2024-08-31] MEDS ORDERED: MIDAZOLAM HCL 2MG/2ML 2ml VIAL (1mg/ml) ONE (09:43)
[2024-08-31] MEDS ORDERED: ONDANSETRON HCL 4 MG/2 ML VIAL ONE (09:43)
[2024-08-31] MEDS ORDERED: PROPOFOL 10 MG/ML 20 ML IV ONE (09:43)
[2024-08-31 10:29] VITALS: O2SAT 98
[2024-08-31 10:36] LABS: Hepatitis B Surface Antigen Negative (Negative); Hepatitis C Antibody Negative (Negative)
[2024-08-31 11:07] VITALS: BP 96/49; PULSE 50; RESP 13; O2SAT 99
--- NOTE | 2024-08-31 13:20 | DVHOP2 ---
Operative Report DATE OF OPERATION: 08/31/24 PROCEDURE: Upper Endoscopy with biopsy. PREOPERATIVE INDICATION: The patient is a 33 -year-old male undergoing endoscopy for recurrent nausea vomiting and an episode of hematemesis POSTOPERATIVE DIAGNOSES: 1. Mild gastritis involving the antrum and body of the stomach with a few flecks of old blood PROCEDURE PERFORMED BY: Iliana Gautam GI NURSE: Olivia SCOPE: Olympus videoendoscope. ASA CLASS: 2 PREOPERATIVE MEDICATIONS: Mac analy, Dr. Mandel PROCEDURE IN DETAIL: After obtaining an informed consent, the patient was placed on left lateral decubitus position. The patient was then sedated with the above medications. A bite block was placed between his teeth. The endoscope was then passed through the oropharynx, into the esophagus, and through the stomach and pylorus up to the second and third part of the duodenum. The endoscope was then withdrawn. Second and 3rd part of the duodenum and the duodenal bulb were normal. Duodenal biopsies were obtained The pre-pyloric area antrum and body showed mild gastritis with a few flecks of old blood. Gastric biopsies were obtained On retroflexion the fundus cardia and angularis were normal. The endoscope was then withdrawn into distal esophagus Patient had a slightly irregular squamocolumnar junction but no significant erosive esophagitis and no hiatal hernia. The remaining distal and proximal esophagus and oropharynx were unremarkable The patient tolerated the procedure well without difficulty. COMPLICATIONS : None SPECIMENS: Duodenal Biopsies Gastric biopsies DISPOSITION: Transfer back to the floor Stable PLAN: 1. Await for biopsy result 2. Protonix 40 mg p.o. daily 3. DC aspirin NSAIDs smoking alcohol 4. Carafate 1 g p.o. twice a day 5. Resume soft mechanical diet advance as tolerated 6. Outpatient follow up with me in 4-6 weeks to review results and discuss further management ILIANA GAUTAM MD Aug 31, 2024 13:20
[2024-08-31 16:07] VITALS: TEMP 36.8
--- NOTE | 2024-09-01 07:58 | DVHDS2 ---
Discharge Summary Date of Admission Aug 29, 2024 at 12:14 Date of Discharge: Aug 31, 2024 Admitting Diagnosis Vomiting Wounds: EGD Labs/Diagnostic Data: Laboratory Results Test 08/30/24 16:50 08/30/24 11:48 08/29/24 10:30 Urine Opiates Screen Neg (NEGATIVE) Urine Fentanyl Screen Neg (NEGATIVE) Urine Barbiturates Screen Neg (NEGATIVE) Urine Phencyclidine Screen Neg (NEGATIVE) Urine Amphetamines Screen Neg (NEGATIVE) Urine Benzodiazepines Screen Neg (NEGATIVE) Urine Cocaine Screen Neg (NEGATIVE) Urine Cannabinoids Screen Pos (NEGATIVE) White Blood Count 7.7 10^3/uL (4.4-10.8) Red Blood Count 5.17 10^6/uL (4.5-5.90) Hemoglobin 16.1 g/dL (13.5-17.5) Hematocrit 46.0 % (41.0-53.0) Mean Corpuscular Volume 88.9 fL (80.0-100.0) Mean Corpuscular Hemoglobin 31.1 pg (28.0-32.0) Mean Corpuscular Hemoglobin Concent 34.9 g/dL (32.0-36.0) Red Cell Distribution Width 13.4 % (11.8-14.3) Platelet Count 116 10^3/uL (140-450) Mean Platelet Volume 8.9 fL (6.9-10.8) Neutrophils (%) (Auto) 77.0 % (37.0-80.0) Lymphocytes (%) (Auto) 13.6 % (10.0-50.0) Monocytes (%) (Auto) 8.0 % (0.0-12.0) Eosinophils (%) (Auto) 0.5 % (0.0-7.0) Basophils (%) (Auto) 0.9 % (0.0-2.0) Neutrophils # (Auto) 5.9 10 ^3/uL (1.6-8.6) Lymphocytes # (Auto) 1.0 10 ^3/uL (0.4-5.4) Monocytes # (Auto) 0.6 10 ^3/uL (0-1.3) Eosinophils # (Auto) 0 10 ^3/uL (0-0.8) Basophils # (Auto) 0.1 10 ^3/uL (0-0.2) Nucleated Red Blood Cells 0.0 % Prothrombin Time 11.5 sec (9.3-11.8) Prothrombin Time INR 1.09 (0.9-1.15) Sodium Level 142 mmol/L (136-145) Potassium Level 3.8 mmol/L (3.5-5.1) Chloride Level 107 mmol/L (98-107) Carbon Dioxide Level 28 mmol/L (20-31) Anion Gap 7 (5-15) Blood Urea Nitrogen 13 mg/dL (9-23) Creatinine 0.93 mg/dL (0.700-1.30) Glomerular Filtration Rate Calc 112 mL/min (>90) BUN/Creatinine Ratio 14.0 (10.0-20.0) Serum Glucose 102 mg/dL (74-106) Calcium Level 9.8 mg/dL (8.7-10.4) Total Bilirubin 1.1 mg/dL (0.2-1.0) Aspartate Amino Transferase (AST) 27 U/L (<34) Alanine Aminotransferase (ALT) 26 U/L (7-40) Alkaline Phosphatase 58 U/L (46-116) Total Protein 6.3 g/dL (5.7-8.2) Albumin 4.5 g/dL (3.2-4.8) Hepatitis B Surface Antigen Negative (Negative) Hepatitis C Antibody Negative (Negative) Urine Color Light-yellow (Yellow) Urine Clarity Clear (Clear) Urine pH 7.0 (5.0-9.0) Urine Specific [place] 1.018 (1.001-1.035) Urine Protein Negative (Negative) Urine Ketones Negative (Negative) Urine Blood Negative /uL (Negative) Urine Nitrite Negative (Negative) Urine Bilirubin Negative (Negative) Urine Urobilinogen Normal mg/dL (Negative) Urine Leukocyte Esterase Negative /uL (Negative) Urine RBC <1 /hpf (0 - 3) Urine Microscopic WBC 1 /HPF (0-3) Urine Squamous Epithelial Cells None seen /hpf (<5) Urine Bacteria None seen /hpf (None Seen) Urine Glucose Normal mg/dL (Normal) Other Laboratory Tests 08/30/24 11:48 Brief Hx & Hospital Course: 34-year-old male with a history of marijuana abuse previous H pylori infection admitted for vomiting treated with symptomatic with the pantoprazole Zofran EGD by GI Dr. Karen Gautam showed mild gastritis patient feels better and discharged home. Consults/Reason for consult GI Dr. Karen Gautam Operations or Procedures EGD Condition at Discharge: Fair Final Diagnosis/Problems List GASTRITIS Discharge Disposition: Home Discharge Instruct/Medications Diet: Regular Activity: No Restrictions, As Tolerated 36 (Time taken for discharge summary 36 minutes) Discharge Statement: "Patient was advised to return to the ER or call 911 if any headaches, dizziness, shortness of breath, chest pain, abdominal pain, bleeding, fevers, or worsening of medical condition. Patient was counseled about treatment plan, medications, possible side effects, patientverbalized understanding. All questions were answered to the best of my ability. This discharge took greater then 30 minutes in planning, reviewing documentation, counseling the patient, and discussing with other team members." ASSESSMENT ASSESSMENT Hospital Course Improved Assessment GASTRITIS Date of Service: Aug 31, 2024 Billing Provider: FAITH RODRÍGUEZ MD Common Visit Codes: [id number] DISCH DAY >30min FAITH RODRÍGUEZ MD Sep 01, 2024 07:58
== END 2024-08-31 16:50 | disposition home or self-care (01) | DRG 241 ==
LOC: ER 08:47 → OVERFLOW 12:14 → CENTRAL 21:40
PROVIDERS: ADMIT Family Medicine; ATTEND Family Medicine
PROC: 0DB68ZX Excision of Stomach, Via Natural or Artificial Opening Endoscopic, Diagnostic (ICD-10-PCS; 2024-08-31)
PROC: 0DB98ZX Excision of Duodenum, Via Natural or Artificial Opening Endoscopic, Diagnostic (ICD-10-PCS; principal; 2024-08-31 10:15)
DX: K29.00 Acute gastritis without bleeding (principal); F12.10 Cannabis abuse, uncomplicated; Z86.19 Personal history of other infectious and parasitic diseases
CPT/HCPCS: 36415; 43239; 74176; 80048; 80053; 80307; 81001; 85025; 85610; 86803; 87340; 96361; 96374; G0378; J1885; J2250; J2405; J2470; J2704